=== PATIENT | male | born 1950 | race Caucasian/White ===

== ENCOUNTER 2018-06-17 07:26 | Outpatient (CLI) | payer MEDICARE ==
[2018-06-17 11:58] LABS: Hemoglobin 14.9 g/dL (14.0-18.0); Mean Corpuscular HGB CONC 33.9 g/dL (32.0-36.0); Mean Corpuscular Hemoglobin 30.3 pg (27.0-31.0); Mean Corpuscular Volume 89.2 fL (78.0-98.0); Mean Platelet Volume 9.1 fL (7.4-10.4); Platelet Count 156 thou/uL (130-400); RBC Distribution Width 12.7 % (11.5-14.5); Red Blood Cell (RBC) Count 4.93 mill/uL (4.70-6.10); White Blood Cell (WBC) Count 5.9 thou/uL (4.8-10.8)
== END 2018-06-17 07:27 | disposition home or self-care (01) ==
LOC: LABBT 07:26
PROVIDERS: ATTEND Orthopaedic Surgery
DX: Z01.818 Encounter for other preprocedural examination (principal); G56.02 Carpal tunnel syndrome, left upper limb
CPT/HCPCS: 85027; 93005; 93010

== ENCOUNTER 2018-06-18 05:44 | Day surgery (SDC) | payer MEDICARE ==
[2018-06-17 10:50] VITALS: BMI 29.9
[2018-06-18] MEDS ORDERED: Midazolam HCl 2 mg/2 ml Vial ONE (06:14)
[2018-06-18] MEDS ORDERED: Fentanyl 100 MCG/2 ML VIAL ONE (06:14)
[2018-06-18] MEDS ORDERED: Lidocaine 1% w/Epinephrine 1:200K 30 ML VIAL ONE (06:36)
[2018-06-18] MEDS ORDERED: Clindamycin/D5W 600 mg/50 ml Premix Bag ONE (06:56)
--- NOTE | 2018-06-18 14:06 | OP ---
DATE OF PROCEDURE: 06/18/2018 PREOPERATIVE DIAGNOSIS: Left carpal tunnel syndrome. POSTOPERATIVE DIAGNOSIS: Left carpal tunnel syndrome. PROCEDURE PERFORMED: Open carpal tunnel release. SIZE CUTTER: None. ANESTHESIOLOGIST: MD Sagrario ANESTHESIA: The patient received a LMA with 10 mL of lidocaine 1% with epi, 5 pre and 5 post procedure incision. IMPLANTS: None. EXPLANTS: None. ANTIBIOTICS: Clindamycin 600. COMPLICATIONS: None. TOURNIQUET TIME: 5 minutes at 350 mmHg. HISTORY OF PRESENT ILLNESS: Robby is a 67-year-old male with history of carpal tunnel syndrome by nerve conduction studies in the past, none recent. The patient had failed conservative measures. The patient understood the risks and benefits of left carpal tunnel release to include pain, scar, bleeding, infection, damage to vital structures, decreased range of motion and strength, continued pain despite surgical intervention, infection, nonunion, malunion of the fracture, decreased range of motion and strength, damage to vital structures, continued pain despite surgery mentioned. The patient understood these risks and benefits. The patient would like to proceed. DESCRIPTION OF PROCEDURE: Time-out was performed designating the patient's left upper extremity as the operative site, based on site, consent, and marking. After time-out, the patient's upper extremities were prepped and draped in sterile fashion. Tourniquet was inflated . The incision was made down on the Lovett's cardinal line down to skin and down through the palmar fascia came down through the palmaris brevis, and the transverse carpal ligament was dissected, protecting the nerve, moved proximally and ensured that complete release. I then washed, let tourniguet down at 5 minutes, bleeding closed with 4-0 nylon. I injected 5 more milliliters of lidocaine 1% with epi. I had injected 5 mL in a wheal in line with the scar preprocedure. The patient was placed in a soft tissue dressing. He will follow up with me in about 10 to 14 days for suture removal. Job ID: [id number]
[2018-06-18] MEDS ORDERED: Ondansetron PF 4 MG/2 ML Vial ONE (14:54)
[2018-06-18] MEDS ORDERED: PROPOFOL 200 MG/20 ML VIAL ONE (14:54)
[2018-06-18] MEDS ORDERED: PHENYLEPHRINE-NS 100 MCG/ML 10 ML SYRINGE ONE (14:54)
[2018-06-18] MEDS ORDERED: ePHEDrine/0.9% NaCl/PF SYRINGE 50 mg/10 ml ONE (14:54)
== END 2018-06-18 09:24 | disposition home or self-care (01) ==
LOC: SDC 05:44
PROVIDERS: ATTEND Orthopaedic Surgery
PROC: 01N50ZZ Release Median Nerve, Open Approach (ICD-10-PCS; principal; 2018-06-18)
DX: G56.02 Carpal tunnel syndrome, left upper limb (principal); E78.00 Pure hypercholesterolemia, unspecified; Z88.0 Allergy status to penicillin; Z88.1 Allergy status to other antibiotic agents; Z79.899 Other long term (current) drug therapy; Z79.82 Long term (current) use of aspirin
CPT/HCPCS: J2250; J2405; J2704; J3010; J3490

== ENCOUNTER 2018-10-14 22:38 | Observation (INO) | payer MEDICARE ==
[2018-10-14 22:59] LABS: #Eosinphils 0.2 thou/uL (0.0-0.7); #Lymphocytes 1.3 thou/uL (1.20-3.40); #Monocytes 0.7 thou/uL (0.11-0.59); #Neutrophils 3.2 thou/uL (1.40-6.50); %Basophils 0.3 % (0.0-1.0); %Lymphocytes 24.4 % (21.0-51.0); %Monocytes 12.2 % (0.0-10.0); Mean Corpuscular HGB CONC 33.8 g/dL (32.0-36.0); Mean Corpuscular Hemoglobin 30.8 pg (27.0-31.0); Mean Corpuscular Volume 90.9 fL (78.0-98.0); Platelet Count 136 thou/uL (130-400); RBC Distribution Width 12.7 % (11.5-14.5); Red Blood Cell (RBC) Count 4.53 mill/uL (4.70-6.10); White Blood Cell (WBC) Count 5.4 thou/uL (4.8-10.8)
--- NOTE | 2018-10-14 23:06 | RAD ---
XR Chest 1 View Portable History: [Chest pressure] Comparison: None. Findings: Abnormal opacity projecting in the right lower lobe. Remainder the lungs are clear. A pneum othorax. No effusion. No acute osseous abnormality. Impression: Abnormal round opacity projecting over the right lower lobe measuring approximately 3.[address] of the chest is recommended.
[2018-10-14 23:21] LABS: ALT (SGPT) 25 U/L (8-55); AST (SGOT) 18 U/L (5-34); Albumin 4.2 g/dL (3.4-4.8); Alkaline Phosphatase 62 U/L (40-150); Anion Gap 11 mmol/L (10-20); BUN (Urea Nitrogen) 15 mg/dL (8.4-25.7); Bilirubin, Total 0.3 mg/dL (0.2-1.2); Calc. Creatinine Clearance 0 mL/min (70-130); Calcium 9.2 mg/dL (7.8-10.44); Carbon Dioxide 25 mmol/L (23-31); Chloride 106 mmol/L (98-107); Estimated GFR-MDRD 83; Globulin 2.5 g/dL (2.4-3.5); Glucose 98 mg/dL (80-115); Potassium 4.4 mmol/L (3.5-5.1); Protein, Total 6.7 g/dL (5.8-8.1); Sodium 138 mmol/L (136-145)
[2018-10-14 23:29] LABS: CK (CPK) 209 U/L (30-200); Lipase 31 U/L (8-78)
[2018-10-15] MEDS ORDERED: Aspirin Chewable 81 MG TAB ONE (00:54)
[2018-10-15 01:15] VITALS: BMI 29.7
[2018-10-15 02:30] LABS: Cardiac Risk 4.6 (Less than 4.5)
[2018-10-15 02:33] LABS: Troponin I Less than 0.010 ng/mL (< 0.028)
--- NOTE | 2018-10-15 03:09 | HP ---
CHIEF COMPLAINT: Chest pain. HISTORY OF PRESENT ILLNESS: The patient is a pleasant 68-year-old male with past medical history significant for moderate coronary artery disease per left heart catheterization in 2005 with a 40% stenosis of one of his coronary arteries per the patient, hypertension, hyperlipidemia, who presented to the hospital with complaints of chest pressure that began this evening. The patient reports that he was at home when symptoms began. He denies any associated shortness of breath, diaphoresis , or palpitations. The discomfort worried him enough that he had his drive him to the ER for further evaluation. On arrival, EKG showed sinus rhythm with no acute ST or T-wave changes, and his initial troponin is negative. His chest pain eventually resolved on its own, and he is resting comfortably now. The patient is followed by his e learning coordinator, Dr. Kern in [place]. He does follow with him on a yearly basis, but states that his last stress test was several years ago. REVIEW OF SYSTEMS: A 12-point review of systems performed and is negative except that stated above. The patient denies any fever, chills, or recent illnesses. ALLERGIES: PENICILLIN AND MACROLIDES. HOME MEDICATIONS: 1. Lisinopril 20 mg daily. 2. Carvedilol 6.25 mg b.i.d. 3. Omeprazole 40 mg daily. 4. Aspirin 81 mg daily. PAST MEDICAL HISTORY/SURGICAL HISTORY: The patient has a history of bladder cancer diagnosed 28 years ago, status post tumor resection. This is currently followed by Dr. Hooker and he has been in remission. He also has a history of prostate cancer status post brachytherapy, and this is also in remission. SOCIAL HISTORY: The patient has never smoked. He does not use illicit drugs. He drinks alcohol on occasion. He is and lives in [place]. CODE STATUS: The patient is a full code. This was discussed with the patient and his . PHYSICAL EXAMINATION: VITAL SIGNS: Blood pressure 137/67, O2 saturation 91% on room air, respirations 18, P=60s. GENERAL: The patient is a well-appearing male, in no acute distress. HEENT: Head is atraumatic and normocephalic. Mucous membranes are moist. NECK: Supple. No lymphadenopathy. No JVD. Trachea is midline. CV: S1 and S2. Regular rate and rhythm. No appreciable murmurs, rubs, or gallops. LUNGS: Regular respiratory rate and pattern. Clear to auscultation bilaterally. ABDOMEN: Positive bowel sounds. Soft, nontender. No masses. EXTREMITIES: No edema. SKIN: Warm and dry. No rashes. NEUROLOGIC: Cranial nerves 1 through 12 intact. The patient is nonfocal. LABORATORY DATA: RBC 4.5, hemoglobin 14, white blood cell 5.4, platelet count 136. D-dimer less than 0.27. Sodium 138, potassium 4.4, anion gap 11, BUN 15, creatinine 0.91. AST, ALT, alkaline phosphatase all within normal limits. Creatine kinase 209. BNP is negative at less than 10. Albumin 4.2, lipase 31. IMAGING STUDIES: EKG, normal sinus rhythm. No ischemic ST or T-wave changes noted. Ventricular rate of 73 beats per minute. Chest x-ray, impression showed an abnormal round opacity projecting over the right lower lobe measuring approximately 3.5 cm, nonemergent CT of the chest recommended. ASSESSMENT: 1. Chest pain in a patient with numerous risk factors and known moderate coronary artery disease per left heart catheterization in 2005. 2. Hypertension. 3. Hyperlipidemia. 4. History of bladder cancer and prostate cancer, status post treatment. 5. 3.5 cm round opacity of the right lower lobe per chest x-ray. PLAN: We will continue serial cardiac enzymes to rule out ACS. We will proceed with nuclear stress test. The patient was given an option of ACS rule out along with followup with his primary e learning coordinator for stress test, but the patient's would prefer to do this in-house, which is reasonable given his presenting symptoms and risk factors. Regarding his findings of chest x-ray, this was discussed with the patient, and he will follow up with his PCP for nonemergent CT of the chest in the near future. Continue aspirin and antihypertensive regimen. We will await findings of stress test for further recommendations. The patient has been discussed with Dr. Galindo who agrees with the above. Job ID: [id number] [facility]
[2018-10-15 07:06] LABS: Troponin I Less than 0.010 ng/mL (< 0.028)
[2018-10-15] MEDS ORDERED: Aspirin 81 mg Enteric Coated Tablet PO SCH (09:00)
[2018-10-15] MEDS ORDERED: Lisinopril 20 MG TAB PO SCH (09:00)
[2018-10-15] MEDS ORDERED: ADENOSINE 60 MG/20 ML VIAL ONE (11:27)
--- NOTE | 2018-10-15 15:38 | NM ---
Nuclear medicine Cardiac myocardial perfusion SPECT Ejection fraction study Wall motion cine: DATE:10/15/2018 2:21 AM TECHNIQUE: Number of days:2 Rest study: Technetium 99m-sestamibi (Cardiolite) dose:9.9 mCi Stress study: Technetium 99m-sestamibi (Cardiolite) dose:30.60 mCi FINDINGS: Cardiac (myocardial perfusion) SPECT There are no reversible myocardial perfusion defects. Ejection fraction study Left ventricular EF = 65% Wall motion cine There was normal wall motion and thickening IMPRESSION: No evidence of reversible myocardial ischemia.
[2018-10-15 15:46] VITALS: BP 154/76; TEMP 97.9
[2018-10-15] MEDS ORDERED: Atorvastatin Calcium 10 MG TAB PO SCH (21:00)
--- NOTE | 2018-10-16 02:55 | DIS ---
DATE OF ADMISSION: 10/15/2018 DATE OF DISCHARGE: 10/15/2018 PRIMARY CARE PHYSICIAN: Dr. Cuevas. BUSINESS DEVELOPMENT OFFICER: Dr. Kern. PROCEDURES: 1. Had a chest x-ray, round opacity projecting over the right lower lobe measuring approximately 3.5 cm. 2. A non emergent CT of the chest is recommended. 3. Stress test, impression, no evidence of reversible myocardial ischemia, EF 65%. HOSPITAL COURSE: This is a 68-year-old male who reported to the emergency room with complaints of chest pressure. Denies pain, but reports that he feels like his heart is having to work more. Denies palpitations. Reports the pain started while he was lying down watching TV. The patient reports he has had a normal stress test several years ago, had a heart catheterization in 2005 with 40% blockage in one of his arteries. He denies any shortness of breath, any abdominal pain, nausea, vomiting, cough. He also denies any fever or chills. The patient was admitted to the observation unit and underwent a stress test, findings above. The patient had 3 troponins, which were undetectable, with negative stress test and negative troponins, the patient was discharged home. The patient has an appointment to follow up with his nuclear physics professor next week. The patient was also encouraged to make an appointment with PCP within the next week. ALLERGIES: 1. PENICILLIN. 2. MYOSINS. HOME MEDICATIONS: 1. Coenzyme Q 50 mg p.o. daily. 2. Pravastatin 40 mg p.o. at bedtime. 3. Prilosec 20 mg p.o. daily. 4. Lisinopril 20 mg p.o. daily. 5. Carvedilol 6.25 mg p.o. b.i.d. 6. Aspirin 81 mg p.o. daily. DISCHARGE DIAGNOSES: 1. Chest pain. 2. Hypertension. 3. Hyperlipidemia. REVIEW OF SYSTEMS: The patient denied any chest pain. Reports that the chest pressure had improved. Denied any palpitations, shortness of breath, fever, chills. Denied any abdominal pain. All other systems are reviewed and are negative unless mentioned in the HPI. PHYSICAL EXAMINATION: VITAL SIGNS: Temperature 97.9, pulse is 71, respirations are 12, pO2 sats are 95% on room air, blood pressure 154/76. CONSTITUTIONAL: The patient appears nontoxic. He is alert and oriented to person, place, and time. HEENT: Head is atraumatic, normocephalic. Eyes; eyelids are normal to inspection. Extraocular muscles are intact. ENT; mucous membranes are moist. Mouth exam is normal. NECK: Normal range of motion. Trachea is midline. RESPIRATORY/CHEST: Breath sounds are clear. No respiratory distress. CARDIOVASCULAR: Heart sounds are normal. Regular heart rate and rhythm. ABDOMEN: Nontender. Bowel sounds are heard. BACK: Normal inspection. Normal range of motion. EXTREMITIES: Upper extremities; normal range of motion. Strength is normal. Radial pulses are normal. Lower extremities; normal inspection. Normal range of motion. Motor strength is normal. Sensation intact. Pedal pulses are normal. NEUROLOGIC: The patient is oriented to person, place, and time. Speech is normal. SKIN: Warm, dry, and normal in color. PSYCH: Has a normal affect. CONDITION: Stable. DISPOSITION: The patient is discharged home. REFERRAL: Dr. Cuevas within [address] Kern as scheduled. It is recommended that the patient has an outpatient CT of the chest as a followup to the chest x-ray performed in the emergency room. Job ID: [id number]
== END 2018-10-15 17:11 | disposition home or self-care (01) ==
LOC: ERS 22:38 → 2SW 10-15 00:10
PROVIDERS: ADMIT Hospitalist; ATTEND Hospitalist
DX: R07.9 Chest pain, unspecified (principal); I25.10 Atherosclerotic heart disease of native coronary artery without angina pectoris; I10 Essential (primary) hypertension; E78.5 Hyperlipidemia, unspecified; Z79.2 Long term (current) use of antibiotics; Z79.899 Other long term (current) drug therapy; Z88.0 Allergy status to penicillin; Z88.8 Allergy status to other drugs, medicaments and biological substances; Z95.5 Presence of coronary angioplasty implant and graft
CPT/HCPCS: 71045; 78452; 80053; 80061; 82550; 83690; 83880; 84484 ×3; 85025; 85379; 93005; 93017; 96360; 99285; A9500; G0378 ×2; 36415; J0153

== ENCOUNTER 2019-04-09 13:40 | Outpatient (CLI) | payer MEDICARE ==
--- NOTE | 2019-04-09 16:25 | MRI ---
EXAM: RIGHT SHOULDER MRI WITHOUT IV CONTRAST: 04/09/19 HISTORY: Rotator cuff surgery in October 2018. Tear of rotator cuff, right shoulder pain. Multiplanar and multisequence MRI examination of the right shoulder is performed. Irregular full thic kness, nonretracted tear of the supraspinatus tendon as well as some interstitial tearing and some pa rtial thickness interstitial tearing of the infraspinatus tendon. There is extensive interstitial tea ring of the biceps tendon in the upper bicipital groove and extending intra-articularly with some ass ociated tendinopathy. Subscapularis tendinopathy with probable undersurface and minimally delaminatin g tear. Rotator cuff muscles are within normal limits of signal and volume. Fluid and fat stranding i n the subacromial bursa with some AC joint arthrosis resulting in some depression of the supraspinatu s myotendinous region. Extensive abnormal signal involving the labrum including the superior and post erior labrum, evidence for extensive labral tearing. IMPRESSION: Rotator cuff tears as above. Extensive labral tearing. POS: TPC
== END 2019-04-09 13:41 | disposition home or self-care (01) ==
LOC: BICMRI 13:40 → SCSMRI 13:41
PROVIDERS: ATTEND Orthopaedic Surgery
DX: M75.101 Unspecified rotator cuff tear or rupture of right shoulder, not specified as traumatic (principal)

== ENCOUNTER 2019-07-19 07:38 | Outpatient (CLI) | payer MEDICARE ==
[2019-07-19 10:59] LABS: #Eosinphils 0.2 thou/uL (0.0-0.7); #Lymphocytes 1.1 thou/uL (1.20-3.40); #Monocytes 0.5 thou/uL (0.11-0.59); #Neutrophils 3.2 thou/uL (1.40-6.50); %Basophils 0.2 % (0.0-1.0); %Eosinophils 3.4 % (0.0-10.0); %Lymphocytes 21.4 % (21.0-51.0); %Monocytes 9.8 % (0.0-10.0); %Neutrophils 65.2 % (42.0-75.0); Mean Corpuscular HGB CONC 35.5 g/dL (32.0-36.0); Mean Corpuscular Hemoglobin 31.7 pg (27.0-31.0); Mean Corpuscular Volume 89.2 fL (78.0-98.0); Mean Platelet Volume 9.7 fL (7.4-10.4); Platelet Count 137 thou/uL (130-400); RBC Distribution Width 12.8 % (11.5-14.5); Red Blood Cell (RBC) Count 4.43 mill/uL (4.70-6.10); White Blood Cell (WBC) Count 4.9 thou/uL (4.8-10.8)
[2019-07-19 11:09] LABS: INR-International Normal Ratio 0.9; Prothrombin Time 12.6 SEC (12.0-14.7)
[2019-07-19 11:23] LABS: Anion Gap 14 mmol/L (10-20); BUN (Urea Nitrogen) 15 mg/dL (8.4-25.7); Calc. Creatinine Clearance 0 mL/min (70-130); Calcium 9.1 mg/dL (7.8-10.44); Carbon Dioxide 24 mmol/L (23-31); Chloride 106 mmol/L (98-107); Estimated GFR-MDRD Greater than 90; Glucose 93 mg/dL (80-115); Potassium 4.5 mmol/L (3.5-5.1); Sodium 139 mmol/L (136-145)
== END 2019-07-19 07:39 | disposition home or self-care (01) ==
LOC: LABBT 07:38
PROVIDERS: ATTEND Orthopaedic Surgery
DX: Z01.818 Encounter for other preprocedural examination (principal); M75.101 Unspecified rotator cuff tear or rupture of right shoulder, not specified as traumatic
CPT/HCPCS: 80048; 85025; 85610; 93005; 93010

== ENCOUNTER 2019-07-22 08:34 | Day surgery (SDC) | payer MEDICARE ==
[2019-07-19 09:43] VITALS: BMI 30.7
[2019-07-22] MEDS ORDERED: Clindamycin/D5W 600 mg/50 ml Premix Bag ONE (09:47)
[2019-07-22] MEDS ORDERED: Midazolam HCl 2 mg/2 ml Vial ONE ×2 (09:58→10:22)
[2019-07-22] MEDS ORDERED: Fentanyl 100 MCG/2 ML VIAL ONE ×2 (09:58→10:22)
[2019-07-22] MEDS ORDERED: Bupivacaine 0.25% HCL 30 ML VIAL ONE (11:14)
[2019-07-22] MEDS ORDERED: Lidocaine 0.5%/Epinephrine 1:200,000 50 ml Vial ONE (11:14)
[2019-07-22] MEDS ORDERED: Lidocaine 1% w/Epinephrine 1:100K 20 ML VIAL ONE (11:14)
--- NOTE | 2019-07-22 12:34 | HP ---
HISTORY OF PRESENT ILLNESS: Mr. Plunkett is a 69-year-old male, who presents complaining of right shoulder pain. Pain has been present for over a year. Pain can be severe with home exercises. The patient has history of a left rotator cuff tear, was treated conservatively. He has night pain, limiting his function, continues to have pain despite surgical intervention, conservative management, desires to proceed with surgery. PAST MEDICAL HISTORY: High cholesterol, hypertension, cardiac disease NOS PAST SURGICAL HISTORY: Bladder tumor removal, open reduction and internal fixation of right distal radius, prostate cancer treatment, and left carpal tunnel release. MEDICATIONS: Currently include; 1. Tylenol. 2. Tylenol with diphenhdyramine. 3. Aspirin. 4. Atenolol. 5. Ibuprofen. 6. Vascepa. 7. Lisinopril. 8. Omeprazole. 9. Pravastatin. ALLERGIES: TO PENICILLIN. SOCIAL HISTORY: The patient occasionally uses alcohol. Denies illicit drug use. No smoking. He is retired from the city. PHYSICAL EXAMINATION: GENERAL: Alert and oriented male, in no acute distress, resting comfortably in bed. EXTREMITIES: Upper extremity motion, has about 180 degrees elevation external rotation, 50 supraspinatus strength is about 4+/5. Positive Johnson and Neer. IMAGING DATA: MRI showed a full-thickness tear of the supraspinatus with some biceps tendinopathy and labral fraying. IMPRESSION: 1. Tear of the right rotator cuff, full-thickness. 2. Biceps tendinopathy. ASSESSMENT AND PLAN: The patient will be taken to the operating room for a right shoulder arthroscopy with rotator cuff repair, possible decompression, and possible biceps tenodesis. I discussed the risks and benefits of surgery to include pain , scar, bleeding, infection, damage to vital structures, decreased range of motion and strength, Freddy deformity, loss of life or limb. The patient understands the risks and benefits. He is electing for a single-shot block preoperatively. Job ID: [id number] [facility]
[2019-07-22] MEDS ORDERED: Glycopyrrolate 0.2 MG/ML 5 ML SYRINGE ONE (15:40)
[2019-07-22] MEDS ORDERED: Lidocaine 1% PF 5 ML VIAL ONE (15:40)
[2019-07-22] MEDS ORDERED: Rocuronium Bromide 10 MG/ML (10ML VIAL) ONE (15:40)
[2019-07-22] MEDS ORDERED: Ondansetron PF 4 MG/2 ML Vial ONE (15:40)
[2019-07-22] MEDS ORDERED: PHENYLEPHRINE-NS 100 MCG/ML 10 ML SYRINGE ONE (15:40)
[2019-07-22] MEDS ORDERED: PROPOFOL 200 MG/20 ML VIAL ONE (15:40)
[2019-07-22] MEDS ORDERED: EPHEDRINE 25 MG/5 ML SYRINGE ONE (15:40)
[2019-07-22] MEDS ORDERED: Ropivacaine 0.5% HCl/PF (150 MG/30 ML VIAL) ONE (15:41)
--- NOTE | 2019-07-23 11:11 | OP ---
DATE OF PROCEDURE: 07/22/2019 PREOPERATIVE DIAGNOSES: 1. Right rotator cuff tear, full-thickness. 2. Right labral tear with biceps tendinopathy and interstitial tearing. 3. Leading edge subscapularis tear. POSTOPERATIVE DIAGNOSES: 1. High-grade full-thickness right rotator cuff tear. 2. Biceps tendinopathy, superior labral degenerative changes. 3. Leading edge less than 10% subscapularis tear. PROCEDURES PERFORMED: 1. Right rotator cuff repair. 2. Right biceps tenodesis. LOCKSTITCH COAT JOINER: None. ANESTHESIOLOGIST: Eneida Willett MD ANESTHESIA: The patient received a general endotracheal intubation with interscalene block. ESTIMATED BLOOD LOSS: 30 mL. TOURNIQUET TIME: None. ANTIBIOTICS: Ancef, clindamycin 600. IMPLANTS: An Arthrex 4.75 SwiveLock x2 and an 8 x 19.5 SwiveLock tenodesis screw. COMPLICATIONS: None. HISTORY OF PRESENT ILLNESS: Mr. Plunkett is a 69-year-old male, who presents with right shoulder pain. The pain has been present for approximately a year. MRI evidence of rotator cuff repair, had failed conservative measures, desired to proceed with a right rotator cuff repair, possible biceps tenodesis and decompression. I explained the risks and benefits of the procedure to include, pain, scar, bleeding, infection, decreased range of motion and strength, continued pain despite surgical intervention, Freddy deformity, damage to vital structures, loss of life or limb, the patient understood the risks and benefits of the procedure and elected to proceed. DESCRIPTION OF PROCEDURE: Time-out was performed designating the patient's right upper extremity as the operative site based on site, consent, and marking. After time-out, the patient's right upper extremity was prepped and draped in a sterile fashion. After time-out was performed, the patient's right upper extremity was placed in a beach-chair position, had a posterior working portal placed and anterior working portal placed, visualized intra-articularly within the joint, some synovitis throughout the joint. Leading edge subscapularis tear about 10%. He had a degenerative labrum and flattened biceps with interstitial tearing, I tenotomized the biceps, cleaned up the joint, I cauterized some of the synovitis and bleeding and reducing leading edge of the subscapularis, could not find any significant tear intra-articularly. I then moved subacromially, debrided of all the bursa. There was a soft spot in the middle of the footprint, which I fell into. I created a opal spot and placed a 4.75 SwiveLock. I placed a lateral working portal to visualize passed 4 sutures, tied horizontal mattress stitches and took those down in the side, cut a little bit of a dog-ear, but the tendon was well fixed down to the bone. I then moved anteriorly, placing my portal in the lateral portal, placing a stab incision and coming down where the biceps would roughly be, came down through skin, debrided off all the bursa, came down it was difficult to actually find the biceps from the groove, just little bit anteriorly. I cleaned it out of the groove, pulled the biceps out. It was almost doubled the size intra-articularly, then it was as it ran down to the groove, I had to cut the tendon down. I ran a locking stitch through with a #2 Ethibond through the tendon. I drilled a 30-mm hole with an drill guide and placed my biceps anchors into place. I then oversewed on top of that with a suture, cut the knot, took final pictures, washed, closed with 3-0 nylon. The patient will have no active elbow flexion, will begin passive range of motion in 2 weeks elbow, wrist, and hand motion. [place] as needed for pain, will follow up with me in about 2 weeks. Job ID: [id number]
== END 2019-07-22 15:37 | disposition home or self-care (01) ==
LOC: SDC 08:34
PROVIDERS: ATTEND Orthopaedic Surgery
PROC: 0LQ14ZZ Repair Right Shoulder Tendon, Percutaneous Endoscopic Approach (ICD-10-PCS; principal; 2019-07-22)
PROC: 0RHJ44Z Insertion of Internal Fixation Device into Right Shoulder Joint, Percutaneous Endoscopic Approach (ICD-10-PCS; 2019-07-22)
PROC: 0LS14ZZ Reposition Right Shoulder Tendon, Percutaneous Endoscopic Approach (ICD-10-PCS; 2019-07-22)
PROC: 0RHJ44Z Insertion of Internal Fixation Device into Right Shoulder Joint, Percutaneous Endoscopic Approach (ICD-10-PCS; 2019-07-22)
DX: M75.121 Complete rotator cuff tear or rupture of right shoulder, not specified as traumatic (principal); M65.811 Other synovitis and tenosynovitis, right shoulder; S46.121A Laceration of muscle, fascia and tendon of long head of biceps, right arm, initial encounter; M25.811 Other specified joint disorders, right shoulder; K21.9 Gastro-esophageal reflux disease without esophagitis; M19.90 Unspecified osteoarthritis, unspecified site; I11.9 Hypertensive heart disease without heart failure; E78.00 Pure hypercholesterolemia, unspecified; Z85.46 Personal history of malignant neoplasm of prostate; Z79.82 Long term (current) use of aspirin; Z79.899 Other long term (current) drug therapy; Z88.0 Allergy status to penicillin; Z88.1 Allergy status to other antibiotic agents
CPT/HCPCS: 29827; 29828; C1713 ×2; J2001; J2250; J2405; J2704; J2795; J3010; J3490; S0020

== ENCOUNTER 2019-10-21 12:17 | Outpatient (CLI) | payer MEDICARE ==
[2019-10-21 12:57] LABS: Estimated GFR-MDRD - POC Greater than 90
--- NOTE | 2019-10-21 14:39 | CT ---
EXAM: CT Chest W Con PROVIDED CLINICAL HISTORY: Pulmonary nodule COMPARISON: None FINDINGS: The heart, pericardium and great vessels appear unremarkable with the exception of vascular calcifica tion including coronary calcium. There is a right thyroid lobe nodule measuring about 1.5 cm. There is a 7 mm subpleural nodule involving the right lower lobe laterally. The lungs are otherwise f ree of significant opacity. The airway appears patent and of normal caliber. No pleural fluid, pleural thickening or pneumothorax apparent. Diffuse fatty infiltration of the liver changes are seen. Hepatic cyst involves the medial segment of the left hepatic lobe. Partially visualized simple appearing left renal cyst. The osseous structures demonstrate no concerning lytic or blastic lesions. IMPRESSION: 7 mm subpleural nodule involving the right lower lobe, for which six-month follow-up CT examination i s recommended.
== END 2019-10-21 12:18 | disposition home or self-care (01) ==
LOC: SCSCT 12:17
PROVIDERS: ATTEND Specialist
DX: R91.1 Solitary pulmonary nodule (principal)
CPT/HCPCS: 71260; 82565

== ENCOUNTER 2023-01-28 08:23 | Day surgery (SDC) | payer MEDICARE, OTHER ==
[2023-01-28 08:30] LABS: #Eosinphils 0.2 thou/uL (0.0-0.7); #Monocytes 0.6 thou/uL (0.11-0.59); #Neutrophils 4.6 thou/uL (1.40-6.50); %Basophils 0.3 % (0.0-1.0); %Eosinophils 2.9 % (0.0-10.0); %Lymphocytes 18.6 % (21.0-51.0); %Monocytes 9.2 % (0.0-10.0); %Neutrophils 68.7 % (42.0-75.0); Hematocrit 44.7 % (42.0-52.0); Hemoglobin 14.9 g/dL (14.0-18.0); Mean Corpuscular HGB CONC 33.3 g/dL (32.0-36.0); Mean Corpuscular Hemoglobin 30.5 pg (27.0-31.0); Mean Corpuscular Volume 91.6 fl (78.0-98.0); Mean Platelet Volume 10.7 fL (7.4-10.4); Platelet Count 154 10x3/uL (130-400); RBC Distribution Width 13.6 % (11.5-14.5); Red Blood Cell (RBC) Count 4.88 mill/uL (4.70-6.10); White Blood Cell (WBC) Count 6.7 10x3/uL (4.8-10.8)
[2023-01-28 09:01] LABS: PTT 25.9 sec (22.9-36.1); Prothrombin Time 13.7 sec (12.0-14.7)
[2023-01-28 11:44] VITALS: BP 127/69; TEMP 98.7
== END 2023-01-28 13:45 | disposition home or self-care (01) ==
LOC: CT 08:23
PROVIDERS: ATTEND Urology
PROC: 0TB03ZX Excision of Right Kidney, Percutaneous Approach, Diagnostic (ICD-10-PCS; principal; 2023-01-28)
DX: C64.1 Malignant neoplasm of right kidney, except renal pelvis (principal); Z88.0 Allergy status to penicillin
CPT/HCPCS: 50200; 77012; 85025; 85610; 85730; 88305; 88333; 88341; 88342

== ENCOUNTER 2023-02-25 10:59 | Outpatient (CLI) | payer OTHER ==
[~2023-02-25 10:59] MED LIST: Iopamidol 370 76% 100 ML VIAL ONE
== END 2023-02-25 11:00 | disposition home or self-care (01) ==
LOC: BICCT 10:59
PROVIDERS: ATTEND Urology
DX: C64.1 Malignant neoplasm of right kidney, except renal pelvis (principal); N28.89 Other specified disorders of kidney and ureter
CPT/HCPCS: 74170; 82565; Q9967

== ENCOUNTER 2023-03-24 13:00 | Inpatient (IN) | payer OTHER ==
[2023-04-07] MEDS ORDERED: fentaNYL PF 100 MCG/2 ML SYRINGE ONE (06:37)
[2023-04-07] MEDS ORDERED: SUGAMMADEX SODIUM 200 MG/2 ML VIAL ONE (06:38)
[2023-04-07] MEDS ORDERED: Famotidine/PF 20 mg/2ml Vial ONE (06:38)
[2023-04-07] MEDS ORDERED: Bupivacaine 0.25% HCL 30 ML VIAL ONE (06:38)
[2023-04-07] MEDS ORDERED: fentaNYL 50 mcg/mL 1 mL Vial ONE (06:45)
[2023-04-07] MEDS ORDERED: Phenylephrine 10 MG/ML VIAL ONE (06:47)
[2023-04-07] MEDS ORDERED: Albumin 5% 0 ML ONE (06:47)
[2023-04-07] MEDS ORDERED: Vasopressin 20 UNITS/ML VIAL ONE (06:47)
[2023-04-07] MEDS ORDERED: LevoFLOXacin 500 mg/D5W 100 ML BAG ONE (06:49)
[2023-04-07] MEDS ORDERED: Midazolam HCl 2 mg/2 ml Vial ONE (06:58)
[2023-04-07] MEDS ORDERED: Vancomycin 1 GM VIAL ONE (07:06)
[2023-04-07] MEDS ORDERED: Rocuronium Bromide 10 MG/ML (10ML VIAL) ONE (07:08)
[2023-04-07] MEDS ORDERED: Dexamethasone 20 MG/5 ML VIAL ONE (07:08)
[2023-04-07] MEDS ORDERED: ePHEDrine Sulfate 50 MG/10 ML VIAL ONE (07:08)
[2023-04-07] MEDS ORDERED: Lidocaine 1.5% w/Epi 1:200K 30 ML VIAL (Epid Use) ONE (07:08)
[2023-04-07] MEDS ORDERED: Lidocaine 1% PF 5 ML VIAL ONE (07:08)
[2023-04-07] MEDS ORDERED: PHENYLEPHRINE-NS 100 MCG/ML 10 ML SYRINGE ONE (07:08)
[2023-04-07] MEDS ORDERED: Ondansetron PF 4 MG/2 ML Vial ONE (07:08)
[2023-04-07] MEDS ORDERED: PROPOFOL 200 MG/20 ML VIAL ONE (07:08)
[2023-04-07] MEDS ORDERED: traMADol HCl 50 MG TAB PO PRN (08:15)
[2023-04-07] MEDS ORDERED: diphenhydrAMINE 50 MG/ML VIAL IVP PRN (08:15)
[2023-04-07] MEDS ORDERED: Ondansetron PF 4 MG/2 ML Vial IVP PRN (08:15)
[2023-04-07] MEDS ORDERED: Moisturizing Cream (Eucerin) 113 GM JAR TOP PRN (08:15)
[2023-04-07] MEDS ORDERED: Bupivacaine 0.25% 10 ML VIAL EPIDURAL PRN (08:15)
[2023-04-07] MEDS ORDERED: Naloxone HCl 0.4 mg/ml Vial IV PRN (08:15)
[2023-04-07] MEDS ORDERED: Promethazine HCl 25 MG/ML VIAL IM PRN ×2 (08:15→09:25)
[2023-04-07] MEDS ORDERED: Zolpidem Tartrate 5 MG TAB PO PRN (08:15)
[2023-04-07] MEDS ORDERED: HYDROcodone/Acetaminophen 5/325 mg Tablet PO PRN ×2 (08:15)
[2023-04-07] MEDS ORDERED: Promethazine HCl 25 MG SUPP PR PRN (08:15)
[2023-04-07] MEDS ORDERED: diphenhydrAMINE 50 MG/ML VIAL IM PRN (08:15)
[2023-04-07] MEDS ORDERED: Naloxone HCl 0.4 mg/ml Vial IVP PRN (08:15)
[2023-04-07] MEDS ORDERED: diphenhydrAMINE 25 MG CAP PO PRN (08:15)
[2023-04-07] MEDS ORDERED: MINERAL OIL/WHITE PETROLATUM 3.5 GM TUBE ONE (08:40)
[2023-04-07] MEDS ORDERED: HYDROmorphone 2 MG/ML VIAL SLOW IVP PRN (09:25)
[2023-04-07] MEDS ORDERED: Meperidine HCl/PF 25 MG/ML VIAL SLOW IVP PRN (09:25)
[2023-04-07] MEDS ORDERED: Ondansetron HCl/PF 4 MG/2 ML Vial IVP PRN (09:25)
[2023-04-07] MEDS ORDERED: Bisacodyl 10 MG SUPP PR PRN (11:31)
[2023-04-07] MEDS ORDERED: hydrALAZINE 20 MG/ML VIAL SLOW IVP PRN (11:31)
[2023-04-07] MEDS ORDERED: Mag-Al 1200 mg/1200 mg/30 ML UDCUP PO PRN (11:31)
[2023-04-07 13:08] LABS: #Monocytes 0.6 thou/uL (0.11-0.59); #Neutrophils 9.5 thou/uL (1.40-6.50); %Basophils 0.2 % (0.0-1.0); %Eosinophils 0.1 % (0.0-10.0); %Monocytes 5.4 % (0.0-10.0); Hematocrit 39.2 % (42.0-52.0); Hemoglobin 13.1 g/dL (14.0-18.0); Mean Corpuscular HGB CONC 33.4 g/dL (32.0-36.0); Mean Corpuscular Volume 92.7 fl (78.0-98.0); Mean Platelet Volume 10.9 fL (7.4-10.4); Platelet Count 148 10x3/uL (130-400); RBC Distribution Width 13.5 % (11.5-14.5); Red Blood Cell (RBC) Count 4.23 mill/uL (4.70-6.10); White Blood Cell (WBC) Count 10.8 10x3/uL (4.8-10.8)
[2023-04-07 13:29] LABS: Anion Gap 13 mmol/L (10-20); BUN (Urea Nitrogen) 13 mg/dL (8.4-25.7); Calc. Creatinine Clearance 100 mL/min (70-130); Carbon Dioxide 18 mmol/L (23-31); Chloride 111 mmol/L (98-107); Estimated GFR 86; Glucose 146 mg/dL (83-110); Potassium 4.1 mmol/L (3.5-5.1); Sodium 138 mmol/L (136-145)
[2023-04-07 15:58] VITALS: BMI 29.7
[2023-04-07] MEDS: Sodium Chloride 0.9% 1,000 ML IV SCH ×2 (16:46→20:29)
[2023-04-07] MEDS: Famotidine/PF 20 mg/2ml Vial SLOW IVP SCH (20:30)
[2023-04-07] MEDS: Ezetimibe 10 MG TAB PO SCH (20:30)
[2023-04-07] MEDS: Atorvastatin Calcium 20 MG TAB PO SCH (20:30)
[2023-04-07] MEDS: Docusate 100 MG CAP PO SCH (20:30)
[2023-04-07] MEDS: Fenofibrate 48 MG TAB PO SCH (20:34)
[2023-04-07] MEDS: Fentanyl/Bupivacaine 100 ML EPIDURAL SCH (23:08)
[2023-04-08 04:22] LABS: #Monocytes 0.8 thou/uL (0.11-0.59); #Neutrophils 7.4 thou/uL (1.40-6.50); %Basophils 0.1 % (0.0-1.0); %Neutrophils 84.7 % (42.0-75.0); Hematocrit 38.2 % (42.0-52.0); Hemoglobin 12.6 g/dL (14.0-18.0); Mean Corpuscular Hemoglobin 30.7 pg (27.0-31.0); Mean Corpuscular Volume 93.2 fl (78.0-98.0); Mean Platelet Volume 10.8 fL (7.4-10.4); Platelet Count 126 10x3/uL (130-400); RBC Distribution Width 13.5 % (11.5-14.5); White Blood Cell (WBC) Count 8.8 10x3/uL (4.8-10.8)
[2023-04-08 04:52] LABS: Anion Gap 13 mmol/L (10-20); BUN (Urea Nitrogen) 13 mg/dL (8.4-25.7); Calc. Creatinine Clearance 78 mL/min (70-130); Calcium 8.4 mg/dL (7.8-10.44); Carbon Dioxide 24 mmol/L (23-31); Chloride 105 mmol/L (98-107); Estimated GFR 64; Glucose 121 mg/dL (83-110); Potassium 4.6 mmol/L (3.5-5.1); Sodium 137 mmol/L (136-145)
[2023-04-08] MEDS: Sodium Chloride 0.9% 1,000 ML IV SCH ×2 (06:01→10:31)
[2023-04-08] MEDS: cefTRIAXone\\ROCEPHIN 2 GM in Sodium Chloride 0.9% 100 ML IVPB SCH (06:05)
[2023-04-08] MEDS: traMADol HCl 50 MG TAB PO PRN ×2 (10:16→23:55)
[2023-04-08] MEDS: Atenolol 50 MG TAB PO SCH (10:19)
[2023-04-08] MEDS: Famotidine/PF 20 mg/2ml Vial SLOW IVP SCH ×2 (10:20→20:16)
[2023-04-08] MEDS: Docusate 100 MG CAP PO SCH ×2 (10:20→20:16)
[2023-04-08] MEDS: Lisinopril 20 MG TAB PO SCH (10:21)
[2023-04-08] MEDS: Fentanyl/Bupivacaine 100 ML EPIDURAL SCH ×2 (11:08→23:56)
[2023-04-08 13:43] LABS: Hematocrit 36.7 % (42.0-52.0); Hemoglobin 12.1 g/dL (14.0-18.0)
[2023-04-08] MEDS: Benzonatate 100 MG CAP PO PRN (20:16)
[2023-04-08] MEDS: Fenofibrate 48 MG TAB PO SCH (20:16)
[2023-04-08] MEDS: Ezetimibe 10 MG TAB PO SCH (20:16)
[2023-04-08] MEDS: Melatonin 3 MG TAB PO PRN (20:16)
[2023-04-08] MEDS: Atorvastatin Calcium 20 MG TAB PO SCH (20:16)
[2023-04-09 03:50] LABS: #Eosinphils 0.1 thou/uL (0.0-0.7); #Neutrophils 7.2 thou/uL (1.40-6.50); %Basophils 0.1 % (0.0-1.0); %Eosinophils 0.8 % (0.0-10.0); %Lymphocytes 6.6 % (21.0-51.0); %Monocytes 11.3 % (0.0-10.0); %Neutrophils 80.9 % (42.0-75.0); Hematocrit 33.7 % (42.0-52.0); Hemoglobin 11.2 g/dL (14.0-18.0); Mean Corpuscular HGB CONC 33.2 g/dL (32.0-36.0); Mean Corpuscular Volume 93.4 fl (78.0-98.0); Mean Platelet Volume 10.4 fL (7.4-10.4); Platelet Count 123 10x3/uL (130-400); RBC Distribution Width 13.7 % (11.5-14.5); Red Blood Cell (RBC) Count 3.61 mill/uL (4.70-6.10); White Blood Cell (WBC) Count 8.9 10x3/uL (4.8-10.8)
[2023-04-09 04:10] LABS: Anion Gap 10 mmol/L (10-20); BUN (Urea Nitrogen) 14 mg/dL (8.4-25.7); Calc. Creatinine Clearance 79 mL/min (70-130); Calcium 8.1 mg/dL (7.8-10.44); Carbon Dioxide 24 mmol/L (23-31); Chloride 102 mmol/L (98-107); Estimated GFR 64; Glucose 91 mg/dL (83-110); Potassium 4.4 mmol/L (3.5-5.1); Sodium 132 mmol/L (136-145)
[2023-04-09] MEDS: cefTRIAXone\\ROCEPHIN 2 GM in Sodium Chloride 0.9% 100 ML IVPB SCH (06:03)
[2023-04-09] MEDS: Benzonatate 100 MG CAP PO PRN ×2 (06:07→20:50)
[2023-04-09] MEDS: guaiFENesin 200 MG TAB PO SCH ×4 (10:33→20:50)
[2023-04-09] MEDS: Famotidine/PF 20 mg/2ml Vial SLOW IVP SCH ×2 (10:33→20:50)
[2023-04-09] MEDS: Lisinopril 20 MG TAB PO SCH (10:34)
[2023-04-09] MEDS: Atenolol 50 MG TAB PO SCH (10:34)
[2023-04-09] MEDS: Docusate 100 MG CAP PO SCH ×2 (10:35→20:50)
[2023-04-09] MEDS ORDERED: Vancomycin (BATCH) 2 GM in Premix 1 BAG IVPB SCH (11:45)
[2023-04-09] MEDS: Cefepime 2 GM in Sodium Chloride 0.9% 100 ML IVPB SCH (12:15)
[2023-04-09] MEDS: LevoFLOXacin 750 mg/D5W 750 MG in Premix 1 BAG IVPB SCH (12:16)
[2023-04-09] MEDS: Fentanyl/Bupivacaine 100 ML EPIDURAL SCH (12:31)
[2023-04-09 13:53] LABS: Hematocrit 33.9 % (42.0-52.0); Hemoglobin 11.5 g/dL (14.0-18.0)
[2023-04-09] MEDS ORDERED: Furosemide 20 MG/2 ML VIAL SLOW IVP SCH (15:45)
[2023-04-09 19:23] LABS: Legionella Urinary Ag Negative (Negative); Strep pneumo Urine Ag NEGATIVE (NEGATIVE)
[2023-04-09] MEDS: Atorvastatin Calcium 20 MG TAB PO SCH (20:50)
[2023-04-09] MEDS: Ezetimibe 10 MG TAB PO SCH (20:50)
[2023-04-09] MEDS: Melatonin 3 MG TAB PO PRN (20:50)
[2023-04-09] MEDS: Fenofibrate 48 MG TAB PO SCH (20:51)
[2023-04-10] MEDS: guaiFENesin 200 MG TAB PO SCH ×7 (00:05→23:31)
[2023-04-10] MEDS: Cefepime 2 GM in Sodium Chloride 0.9% 100 ML IVPB SCH ×3 (00:05→23:30)
[2023-04-10] MEDS: traMADol HCl 50 MG TAB PO PRN (00:08)
[2023-04-10] MEDS: Vancomycin 1 GM in Premix 1 BAG IVPB SCH ×2 (02:22→15:05)
[2023-04-10 04:23] LABS: #Eosinphils 0.1 thou/uL (0.0-0.7); #Monocytes 0.9 thou/uL (0.11-0.59); #Neutrophils 5.6 thou/uL (1.40-6.50); %Basophils 0.1 % (0.0-1.0); %Eosinophils 1.6 % (0.0-10.0); %Lymphocytes 9.8 % (21.0-51.0); %Monocytes 12.1 % (0.0-10.0); Hematocrit 31.9 % (42.0-52.0); Hemoglobin 10.5 g/dL (14.0-18.0); Mean Corpuscular HGB CONC 32.9 g/dL (32.0-36.0); Mean Corpuscular Hemoglobin 30.4 pg (27.0-31.0); Mean Corpuscular Volume 92.5 fl (78.0-98.0); Mean Platelet Volume 10.9 fL (7.4-10.4); Platelet Count 104 10x3/uL (130-400); RBC Distribution Width 13.6 % (11.5-14.5); Red Blood Cell (RBC) Count 3.45 mill/uL (4.70-6.10); White Blood Cell (WBC) Count 7.4 10x3/uL (4.8-10.8)
[2023-04-10 04:51] LABS: Anion Gap 7 mmol/L (10-20); BUN (Urea Nitrogen) 14 mg/dL (8.4-25.7); Calc. Creatinine Clearance 94 mL/min (70-130); Calcium 8.4 mg/dL (7.8-10.44); Carbon Dioxide 26 mmol/L (23-31); Chloride 103 mmol/L (98-107); Estimated GFR 78; Glucose 94 mg/dL (83-110); Potassium 4.2 mmol/L (3.5-5.1); Sodium 132 mmol/L (136-145)
[2023-04-10] MEDS: Fentanyl/Bupivacaine 100 ML EPIDURAL SCH (06:13)
[2023-04-10] MEDS: Docusate 100 MG CAP PO SCH ×2 (09:36→20:15)
[2023-04-10] MEDS: Lisinopril 20 MG TAB PO SCH (09:36)
[2023-04-10] MEDS: Atenolol 50 MG TAB PO SCH (09:37)
[2023-04-10] MEDS: LevoFLOXacin 750 mg/D5W 750 MG in Premix 1 BAG IVPB SCH (12:49)
[2023-04-10 14:39] LABS: Hematocrit 30.8 % (42.0-52.0); Hemoglobin 10.3 g/dL (14.0-18.0)
[2023-04-10] MEDS: Fenofibrate 48 MG TAB PO SCH (20:14)
[2023-04-10] MEDS: Ezetimibe 10 MG TAB PO SCH (20:14)
[2023-04-10] MEDS: Atorvastatin Calcium 20 MG TAB PO SCH (20:15)
[2023-04-11 03:02] LABS: #Eosinphils 0.1 thou/uL (0.0-0.7); #Monocytes 0.6 thou/uL (0.11-0.59); #Neutrophils 3.9 thou/uL (1.40-6.50); %Basophils 0.4 % (0.0-1.0); %Eosinophils 2.4 % (0.0-10.0); %Lymphocytes 12.4 % (21.0-51.0); %Monocytes 11.8 % (0.0-10.0); %Neutrophils 72.6 % (42.0-75.0); Hematocrit 31.4 % (42.0-52.0); Hemoglobin 10.3 g/dL (14.0-18.0); Mean Corpuscular HGB CONC 32.8 g/dL (32.0-36.0); Mean Corpuscular Hemoglobin 30.3 pg (27.0-31.0); Mean Corpuscular Volume 92.4 fl (78.0-98.0); RBC Distribution Width 13.6 % (11.5-14.5); White Blood Cell (WBC) Count 5.3 10x3/uL (4.8-10.8)
[2023-04-11 03:12] LABS: Platelet Count 111 10x3/uL (130-400)
[2023-04-11 03:24] LABS: Vancomycin, Trough 11.3 ug/mL
[2023-04-11 04:19] LABS: Anion Gap 12 mmol/L (10-20); BUN (Urea Nitrogen) 14 mg/dL (8.4-25.7); Calc. Creatinine Clearance 87 mL/min (70-130); Calcium 8.6 mg/dL (7.8-10.44); Carbon Dioxide 25 mmol/L (23-31); Chloride 104 mmol/L (98-107); Estimated GFR 72; Glucose 87 mg/dL (83-110); Potassium 4.7 mmol/L (3.5-5.1); Sodium 136 mmol/L (136-145)
[2023-04-11] MEDS: Vancomycin 1 GM in Premix 1 BAG IVPB SCH (04:19)
[2023-04-11] MEDS: Vancomycin (BATCH) 1.25 GM in Premix 1 BAG IVPB SCH ×2 (04:25→15:44)
[2023-04-11] MEDS: guaiFENesin 200 MG TAB PO SCH ×6 (04:25→23:31)
[2023-04-11] MEDS: Fentanyl/Bupivacaine 100 ML EPIDURAL SCH (06:01)
[2023-04-11] MEDS: Lisinopril 20 MG TAB PO SCH (09:20)
[2023-04-11] MEDS: Docusate 100 MG CAP PO SCH ×2 (09:21→20:16)
[2023-04-11] MEDS: Atenolol 50 MG TAB PO SCH (09:21)
[2023-04-11] MEDS: Cefepime 2 GM in Sodium Chloride 0.9% 100 ML IVPB SCH ×2 (12:18→23:31)
[2023-04-11] MEDS: LevoFLOXacin 750 mg/D5W 750 MG in Premix 1 BAG IVPB SCH (12:18)
[2023-04-11 13:53] VITALS: BP 131/74
[2023-04-11] MEDS: Ezetimibe 10 MG TAB PO SCH (20:16)
[2023-04-11] MEDS: Fenofibrate 48 MG TAB PO SCH (20:16)
[2023-04-11] MEDS: Atorvastatin Calcium 20 MG TAB PO SCH (20:16)
[2023-04-12] MEDS: guaiFENesin 200 MG TAB PO SCH ×3 (04:22→12:38)
[2023-04-12 04:31] LABS: #Eosinphils 0.1 thou/uL (0.0-0.7); #Monocytes 0.7 thou/uL (0.11-0.59); #Neutrophils 3.4 thou/uL (1.40-6.50); %Basophils 0.2 % (0.0-1.0); %Eosinophils 2.5 % (0.0-10.0); %Lymphocytes 12.5 % (21.0-51.0); %Monocytes 14.4 % (0.0-10.0); %Neutrophils 70.2 % (42.0-75.0); Hematocrit 30.5 % (42.0-52.0); Hemoglobin 10.2 g/dL (14.0-18.0); Mean Corpuscular HGB CONC 33.4 g/dL (32.0-36.0); Mean Corpuscular Hemoglobin 30.4 pg (27.0-31.0); Platelet Count 125 10x3/uL (130-400); RBC Distribution Width 13.5 % (11.5-14.5); Red Blood Cell (RBC) Count 3.35 mill/uL (4.70-6.10); White Blood Cell (WBC) Count 4.9 10x3/uL (4.8-10.8)
[2023-04-12 04:58] LABS: Anion Gap 12 mmol/L (10-20); BUN (Urea Nitrogen) 15 mg/dL (8.4-25.7); Calc. Creatinine Clearance 89 mL/min (70-130); Calcium 8.6 mg/dL (7.8-10.44); Carbon Dioxide 25 mmol/L (23-31); Chloride 105 mmol/L (98-107); Estimated GFR 75; Glucose 88 mg/dL (83-110); Potassium 4.4 mmol/L (3.5-5.1); Sodium 138 mmol/L (136-145)
[2023-04-12] MEDS: Docusate 100 MG CAP PO SCH (08:48)
[2023-04-12] MEDS: Lisinopril 20 MG TAB PO SCH (08:48)
[2023-04-12] MEDS: Atenolol 50 MG TAB PO SCH (08:49)
[2023-04-12] MEDS ORDERED: Tamsulosin HCl 0.4 MG CAP PO SCH (09:00)
[2023-04-12] MEDS: LevoFLOXacin 750 mg/D5W 750 MG in Premix 1 BAG IVPB SCH (10:57)
[2023-04-12 11:28] VITALS: TEMP 98.7
[2023-04-12] MEDS: Cefepime 2 GM in Sodium Chloride 0.9% 100 ML IVPB SCH (12:38)
== END 2023-04-12 15:20 | disposition home or self-care (01) | DRG 656 ==
LOC: SURG A 04-07 06:07 → EDSTATUS 04-07 13:30 → IMCU/EMU 04-07 15:45
PROVIDERS: ADMIT Urology; ATTEND Urology
PROC: 0TB00ZZ Excision of Right Kidney, Open Approach (ICD-10-PCS; principal; 2023-04-07)
PROC: 30233J1 Transfusion of Nonautologous Serum Albumin into Peripheral Vein, Percutaneous Approach (ICD-10-PCS; 2023-04-07)
PROC: 3E033XZ Introduction of Vasopressor into Peripheral Vein, Percutaneous Approach (ICD-10-PCS; 2023-04-07)
DX: C64.1 Malignant neoplasm of right kidney, except renal pelvis (principal); J96.01 Acute respiratory failure with hypoxia; J95.89 Other postprocedural complications and disorders of respiratory system, not elsewhere classified; E87.1 Hypo-osmolality and hyponatremia; D62 Acute posthemorrhagic anemia; J90 Pleural effusion, not elsewhere classified; I10 Essential (primary) hypertension; E78.5 Hyperlipidemia, unspecified; D69.6 Thrombocytopenia, unspecified; Z88.8 Allergy status to other drugs, medicaments and biological substances; Z85.46 Personal history of malignant neoplasm of prostate; Z85.51 Personal history of malignant neoplasm of bladder
CPT/HCPCS: 36415; 71046; 80048; 80202; 82570; 84145; 85025; 86850; 86900; 86901; 87081; 87449; 87804; 87899; 88307; 94640; A4314; A4649; C1713; C1776; C1889; J0692; J0696; J1100; J1940; J1956; J2001; J2250; J2370; J2405; J2704; J3010; J3370; J3370-JW; J3490; J7050; P9045; S0020; S0028

== ENCOUNTER 2023-03-25 13:32 | Outpatient (CLI) | payer OTHER ==
[2023-03-25 14:40] LABS: Bilirubin Neg (Negative); Blood, Urine Negative (Negative); Clarity Clear (Clear); Glucose, Urine (Dipstick) Normal (Negative); Ketone, Urine Negative (Negative); Leukocyte Negative (Negative); Nitrite Negative (Negative); Protein, Urine (Dipstick) Negative (Neg-Trace); Urobilinogen Normal mg/dL (Less than 2)
[2023-03-25 14:55] LABS: Hematocrit 41.3 % (38.8-50.0); Hemoglobin 13.8 g/dL (13.5-17.5); Mean Corpuscular HGB CONC 33.4 g/dL (32.0-36.0); Mean Corpuscular Hemoglobin 30.5 pg (27.0-33.0); Mean Corpuscular Volume 91.2 fl (81.2-95.1); Mean Platelet Volume 11.1 fl (7.4-10.4); Platelet Count 150 10x3/uL (150-450); RBC Distribution Width 13.5 % (11.5-14.5); Red Blood Cell (RBC) Count 4.53 10x6/uL (4.32-5.72); White Blood Cell (WBC) Count 5.3 10x3/uL (3.5-10.5)
[2023-03-25 15:00] LABS: PTT 26.7 sec (22.0-33.0); Prothrombin Time 10.9 sec (9.5-12.1)
[2023-03-25 15:05] LABS: Anion Gap 12 mmol/L (10-20); BUN (Urea Nitrogen) 15 mg/dL (8.4-25.7); Calc. Creatinine Clearance 0 mL/min (70-130); Calcium 9.2 mg/dL (7.8-10.44); Carbon Dioxide 24 mmol/L (23-31); Chloride 108 mmol/L (98-107); Estimated GFR 91; Glucose 101 mg/dL (83-110); Potassium 4.3 mmol/L (3.5-5.1); Sodium 140 mmol/L (136-145)
[2023-03-25 15:33] LABS: RBC/HPF None Seen HPF (0-3); Squamous Epithelial None Seen HPF (0-3); WBC/HPF None Seen HPF (0-3)
[2023-03-25 15:34] LABS: Bacteria/HPF None Seen HPF (None Seen)
== END 2023-03-25 13:33 | disposition home or self-care (01) ==
LOC: LABBT 13:32
PROVIDERS: ATTEND Urology
DX: Z01.818 Encounter for other preprocedural examination (principal); C64.1 Malignant neoplasm of right kidney, except renal pelvis; C61 Malignant neoplasm of prostate; C67.9 Malignant neoplasm of bladder, unspecified; D41.01 Neoplasm of uncertain behavior of right kidney; E29.1 Testicular hypofunction; N40.1 Benign prostatic hyperplasia with lower urinary tract symptoms; R91.1 Solitary pulmonary nodule
CPT/HCPCS: 71046; 80048; 81001; 85027; 85610; 85730; 87086; 93005; 93010

== ENCOUNTER 2024-03-30 12:00 | Outpatient (CLI) | payer OTHER ==
[~2024-03-30 12:00] MED LIST changes: +GASTROGRAFIN 30 ML BOT ONE
== END 2024-03-30 12:01 | disposition home or self-care (01) ==
LOC: CT 12:00
PROVIDERS: ATTEND Physician Assistant Medical
DX: R14.0 Abdominal distension (gaseous) (principal); R63.4 Abnormal weight loss
CPT/HCPCS: 36415; 74177; 82565; Q9963; Q9967